=== PATIENT | female | born 1935 | race Two or more races ===

== ENCOUNTER 2020-08-09 10:35 | Inpatient (IN) | payer OTHER ==
[~2020-08-09] VITALS: Ht 154.9 cm
[2020-08-09] MEDS ORDERED: ALTACE10 MG PO (10:57)
[2020-08-09] MEDS ORDERED: CARVEDILOL12.5 MG (10:57)
[2020-08-09] MEDS ORDERED: MACRODANTIN100 M1 PO (10:58)
[2020-08-09] MEDS ORDERED: HYDRODIURIL12.5 MG PO (10:58)
[2020-08-09] MEDS ORDERED: ZOCOR20 MG PO (10:58)
[2020-08-09] MEDS ORDERED: NEURONTIN300 MG PO (10:58)
== END 2020-08-13 11:31 | disposition home or self-care (01) | DRG 641 ==
LOC: ER 10:35 → MEDJ 21:44
PROVIDERS: ADMIT Internal Medicine; ATTEND Internal Medicine
DX: E86.0 Dehydration (principal); I50.22 Chronic systolic (congestive) heart failure; R18.8 Other ascites; K76.89 Other specified diseases of liver; I11.0 Hypertensive heart disease with heart failure